=== PATIENT | male | born 1980 | race Two or more races ===

== ENCOUNTER 2016-04-23 21:40 | Emergency (ER) | payer MEDICAID ==
[2016-04-24] MEDS ORDERED: FAMOTIDINE 20 MG TABLET ONE (02:27)
[2016-04-24] MEDS ORDERED: MAALOX/LIDO2%VISC/SIMETHICONE 40 ML BOT ONE (02:27)
[2016-04-24] MEDS ORDERED: SUCRALFATE 1 G/10 ML DOSE ONE (02:27)
--- NOTE | 2016-04-24 08:29 | RAD ---
Name: CAROL LINK Exam: Two-view chest Comparison: None Clinical history: Epigastric pain Findings: 2 views of the chest are submitted. The heart mediastinum and hilar structures are within normal limits. There is no failure, infiltrate, pleural effusion or pneumothorax. Regional skeleton is within normal limits. Impression: No acute cardiopulmonary process
== END 2016-04-24 03:37 | disposition home or self-care (01) ==
LOC: ED 21:40
DX: R10.13 Epigastric pain (principal); K21.9 Gastro-esophageal reflux disease without esophagitis
CPT/HCPCS: 84484; 71020; 99283 ×2; 36415; A9270 ×3